=== PATIENT | female | born 1955 | race Caucasian/White ===

== ENCOUNTER 2021-11-14 11:24 | Outpatient (CLI) | payer MEDICARE | END 2021-11-14 11:25 | disposition home or self-care (01) | LOC: CSHMAMMO 11:24 | PROVIDERS: ATTEND Family Medicine | DX: Z12.31 Encounter for screening mammogram for malignant neoplasm of breast (principal) | CPT/HCPCS: 77063; 77067 ==

== ENCOUNTER 2024-05-17 11:54 | Outpatient (CLI) | payer MEDICARE | END 2024-05-17 11:55 | disposition home or self-care (01) | LOC: CSHMAMMO 11:54 | PROVIDERS: ATTEND Family Medicine | DX: Z12.31 Encounter for screening mammogram for malignant neoplasm of breast (principal) | CPT/HCPCS: 77063; 77067 ==

== ENCOUNTER 2025-05-24 13:08 | Outpatient (CLI) | payer MEDICARE | END 2025-05-24 13:09 | disposition home or self-care (01) | LOC: CSHMAMMO 13:08 | PROVIDERS: ATTEND Family Medicine | DX: Z12.31 Encounter for screening mammogram for malignant neoplasm of breast (principal) | CPT/HCPCS: 77063; 77067 ==